=== PATIENT | male | born 1955 | race Caucasian/White ===

== ENCOUNTER → 2017-12-12 | Outpatient (CLI) | payer OTHER ==
[~2017-12-12] MED LIST: ALBIPROI INH; ASPI325 PO; BUDE6HFA INH; CARI350 PO; CEPH500 PO; CYCL10 PO; DIPH50 PO; DULO30 PO; DULO60 PO; FURO80 PO; GABA300 PO; HYDMOR2 PO; Humalog100 UNIT/1 SC; INSUASPI SC; INSULANPEN SC; INSULANPEN SQ; LOSARTAN-HCTZ1 EAC1 PO; METF500 PO; METO25ER PO; METO50ER PO; Norco 5-325 Ta1 EACH PO; OLME40 PO; OMEP20ER PO; Omeprazole20 M1 PO; POTA10T PO; PRAV20 PO; PROM25 PO; Prednisone20 MG PO; SUCR1 PO; TAMS.4ER PO; TRAM50 PO
[2017-12-12 17:00] LABS: BASOPHILS PERCENT AUTO 1 % (0-2); EOSINOPHILS PERCENT AUTO 1 % (0-6); Hematocrit 41.3 % (37.0-53.0); Hemoglobin 14.5 g/dL (13.5-17.5); IMMATURE GRAN ABSOLUTE AUTO 0.06 K/mm3 (0.00-0.10); IMMATURE GRAN PERCENT AUTO 1 % (0-1); LYMPHOCYTES ABSOLUTE AUTO 2.18 K/mm3 (0.84-5.20); LYMPHOCYTES PERCENT AUTO 25 % (21-46); MONOCYTES PERCENT AUTO 9 % (4-13); Mean Corpuscular HGB 30.9 pg (26.0-34.0); Mean Corpuscular HGB Conc 35.1 g/dL (31.5-36.5); Mean Corpuscular Volume 88 fL (80-100); Mean Platelet Volume 9.1 fL (9.1-12.4); NEUTROPHILS ABSOLUTE AUTO 5.62 K/mm3 (1.96-9.15); NEUTROPHILS PERCENT AUTO 64 % (41-73); Platelet Count 324 K/mm3 (150-400); RDW Coefficient Variation 14.1 % (11.7-14.2); Red Blood Cell Count 4.69 M/mm3 (4.30-5.90); White Blood Cell Count 8.86 K/mm3 (4.00-11.30)
[2017-12-12 17:11] LABS: Alanine Aminotransfer (ALT/SGP 43 U/L (12-78); Albumin, Blood 3.6 g/dL (3.4-5.0); Albumin/Globulin Ratio 1.1 (0.8-1.8); Alk Phos 122 U/L (40-126); Anion Gap 9 mmol/L (6-16); Aspartate Aminotrans (AST/SGOT 22 U/L (12-37); Bilirubin, Total 0.3 mg/dL (0.1-1.0); Blood Urea Nitrogen 12 mg/dL (8-24); CO2, Blood 27 mmol/L (21-32); Calcium, Blood 8.7 mg/dL (8.5-10.1); Chloride, Blood 98 mmol/L (98-108); Creatinine, Blood 0.92 mg/dL (0.60-1.20); Globulin, Blood 3.4 g/dL (2.2-4.0); Glomerular Filtration Rate >60 (60-); Glucose, Blood 291 mg/dL (70-99); Potassium, Blood 3.7 mmol/L (3.5-5.5); Sodium, Blood 134 mmol/L (136-145)
== END | disposition home or self-care (01) ==
LOC: LAB EV 16:55 → LAB SHORT 16:55
PROVIDERS: Physician Assistant Surgical
DX: R10.9 Unspecified abdominal pain (principal)
CPT/HCPCS: 80053; 83690; 85025

== ENCOUNTER 2018-01-26 06:41 | Day surgery (SDC) | payer OTHER ==
[~2018-01-26] VITALS: Ht 175.3 cm; Wt 101.6 kg
[~2018-01-26 06:41] MED LIST changes: +AMLO5 PO; +Glucophage1000 MG PO
== END 2018-01-26 08:50 | disposition home or self-care (01) ==
LOC: ORSCMMR 06:41 → ORD 08:00 → ORSCMMR 08:00
PROVIDERS: Internal Medicine Gastroenterology
PROC: 0DBK8ZX Excision of Ascending Colon, Via Natural or Artificial Opening Endoscopic, Diagnostic (ICD-10-PCS; principal; 2018-01-26 08:00)
PROC: 0DBN8ZX Excision of Sigmoid Colon, Via Natural or Artificial Opening Endoscopic, Diagnostic (ICD-10-PCS; principal; 2018-01-26 08:00)
PROC: 0DBB8ZX Excision of Ileum, Via Natural or Artificial Opening Endoscopic, Diagnostic (ICD-10-PCS; principal; 2018-01-26 08:00)
PROC: 0DBL8ZX Excision of Transverse Colon, Via Natural or Artificial Opening Endoscopic, Diagnostic (ICD-10-PCS; principal; 2018-01-26 08:00)
DX: R19.7 Diarrhea, unspecified (principal); K64.8 Other hemorrhoids; E11.9 Type 2 diabetes mellitus without complications; I10 Essential (primary) hypertension; I73.9 Peripheral vascular disease, unspecified; K22.70 Barrett's esophagus without dysplasia; F17.210 Nicotine dependence, cigarettes, uncomplicated; Z79.84 Long term (current) use of oral hypoglycemic drugs; Z79.899 Other long term (current) drug therapy
CPT/HCPCS: 82947; 88305; J7120

== ENCOUNTER → 2018-07-08 | Outpatient (CLI) | payer OTHER | END | disposition home or self-care (01) | LOC: LAB EV 14:23 → LAB SHORT 14:23 | DX: N30.91 Cystitis, unspecified with hematuria (principal) | CPT/HCPCS: 87086 ==

== ENCOUNTER 2018-08-12 00:51 | Emergency (ER) | payer OTHER ==
[~2018-08-12] VITALS: Ht 175.3 cm; Wt 111.1 kg
[2018-08-12] MEDS ORDERED: DULO60 PO (02:38)
[2018-08-12] MEDS ORDERED: AMLO10 PO (02:38)
[2018-08-12] MEDS ORDERED: DICL75ER PO (02:38)
[2018-08-12] MEDS ORDERED: MELO7.5 PO (02:39)
[2018-08-12] MEDS ORDERED: INSULANPEN SC (02:39)
[2018-08-12] MEDS ORDERED: Flector1 EACH TD (02:57)
[2018-08-12] MEDS ORDERED: Norco 10-325 T1 EACH PO (02:57)
== END 2018-08-12 03:15 | disposition home or self-care (01) ==
LOC: ER 00:51
DX: M54.2 Cervicalgia (principal); F17.200 Nicotine dependence, unspecified, uncomplicated; Z88.1 Allergy status to other antibiotic agents; Z88.8 Allergy status to other drugs, medicaments and biological substances; Z79.4 Long term (current) use of insulin; Z79.899 Other long term (current) drug therapy
CPT/HCPCS: 96372; 99283-25; J1885

== ENCOUNTER → 2018-11-14 | Outpatient (CLI) | payer OTHER ==
[~2018-11-14] MED LIST changes: +AMLO10 PO; +DICL75ER PO; +Flector1 EACH TD; +MELO7.5 PO; +Norco 10-325 T1 EACH PO
[2018-11-14 15:05] LABS: Protein, Urine Quantitative 146.2 mg/dL (0.0-11.9)
== END | disposition home or self-care (01) ==
LOC: LAB 10:00 → LAB SHORT 10:00 → LAB FUT 11-13 11:40
PROVIDERS: Internal Medicine
DX: E11.65 Type 2 diabetes mellitus with hyperglycemia (principal); R80.9 Proteinuria, unspecified
CPT/HCPCS: 81050; 82570; 84156; 84300

== ENCOUNTER → 2019-07-13 | Outpatient (CLI) | payer OTHER ==
[2019-07-13 17:32] LABS: Protein, Urine Random 52.1 mg/dL (0.0-11.9)
== END | disposition home or self-care (01) ==
LOC: LAB SHORT 13:18 → OLS 13:18
PROVIDERS: Internal Medicine
DX: N18.1 Chronic kidney disease, stage 1 (principal)
CPT/HCPCS: 82570; 84156

== ENCOUNTER 2021-01-16 10:37 | Day surgery (SDC) | payer OTHER ==
[~2021-01-16] VITALS: Ht 175.3 cm; Wt 102.0 kg
[~2021-01-16 10:37] MED LIST changes: +CILO100 PO; +K-Dur10 MEQ PO; +LOSA50 PO; +ROSU10TA PO
[2021-01-16] MEDS ORDERED: FURO20 PO (11:02)
[2021-01-16 12:00] LABS: SARS-Cov-2 (COVID-19) PCR, MMC NEGATIVE (NEGATIVE)
--- NOTE | 2021-01-16 17:32 | NUR ---
PT UP AND DRESSED PER SELF. GROIN SITE STABLE. DISCHARGE INSTRUCTIONS REVIEWED WITH PT, VERBALIZES UNDERSTANDING OF INSTRUCTIONS. SALINE LOCK REMOVED WITH CATHETER INTACT. PT TO PRIVATE VEHICLE WITH ASSIST OF ONE STAFF.
== END 2021-01-16 23:00 | disposition home or self-care (01) ==
LOC: MHTC 10:37
PROVIDERS: Radiology Diagnostic Radiology
DX: E11.51 Type 2 diabetes mellitus with diabetic peripheral angiopathy without gangrene (principal); I70.213 Atherosclerosis of native arteries of extremities with intermittent claudication, bilateral legs; I10 Essential (primary) hypertension; E78.5 Hyperlipidemia, unspecified; J44.9 Chronic obstructive pulmonary disease, unspecified; G47.33 Obstructive sleep apnea (adult) (pediatric); F17.210 Nicotine dependence, cigarettes, uncomplicated; Z88.5 Allergy status to narcotic agent; Z88.0 Allergy status to penicillin; Z88.8 Allergy status to other drugs, medicaments and biological substances; Z20.822 Contact with and (suspected) exposure to COVID-19
CPT/HCPCS: 37221; 37224; 37228; 75625; 75716; 75774; 76937; 85347; 99152; 99153; C1725; C1760; C1769; C1876; C1887; C1894; C2623; J2250; J3010; J7030; J7050; Q9967; U0004

== ENCOUNTER 2021-04-30 09:55 | Day surgery (SDC) | payer OTHER ==
[~2021-04-30] VITALS: Ht 172.7 cm; Wt 103.0 kg
[~2021-04-30 09:55] MED LIST changes: +Aspir 8181 MG PO; +CLOP75 PO; +FURO20 PO
[2021-04-30] MEDS ORDERED: Percocet 5-3251 EACH PO (10:32)
[2021-04-30] MEDS ORDERED: GABA300 PO (10:32)
--- NOTE | 2021-04-30 16:10 | NUR ---
PATIENT AWAKE AND ALERTY. RIGHT GROIN SITE SOFT AND NONTENDER. NO BLEEDING NO HEMATOMA. DRESSING D&I. DRESSING TO LEFT FOOT D&I. NO BLEEDING. NO HEMATOMA.
--- NOTE | 2021-04-30 16:53 | NUR ---
PATIENT SITTING IN BED. EATING DINNER AND VISITING. RIGHT GROIN SITE UNCHANGED.
--- NOTE | 2021-04-30 17:55 | NUR ---
PATIENT VERBALIZED UNDERSTANDING OF DISCHARGE INSTRUCTIONS AND PRECAUTIONS. PATIENT UP TO RESTROOM. DRESSED BY SELF. RIGHT GROIN SITE REMAINS SOFT AND NONTENDER. NO HEMATOMA, NO BLEEDING. DRESSING D&I. IV SITE DCED WITH CATHETER IN TACT. TAKEN VIA WHEEL CHAIR TO CAR WITH FAMILY DRIVING
== END 2021-04-30 17:50 | disposition home or self-care (01) ==
LOC: MHTC 09:55
DX: E11.51 Type 2 diabetes mellitus with diabetic peripheral angiopathy without gangrene (principal); I70.223 Atherosclerosis of native arteries of extremities with rest pain, bilateral legs; J44.9 Chronic obstructive pulmonary disease, unspecified; E78.5 Hyperlipidemia, unspecified; I10 Essential (primary) hypertension; F17.210 Nicotine dependence, cigarettes, uncomplicated; Z88.0 Allergy status to penicillin; Z88.5 Allergy status to narcotic agent; Z88.8 Allergy status to other drugs, medicaments and biological substances; Z79.02 Long term (current) use of antithrombotics/antiplatelets
CPT/HCPCS: 76937; 99152; 99153; C1714; C1725; C1760; C1769; C1874; C1876; C1887; C1894; C2623; J1644; J2250; J3010; J7030; J7050; Q9967

== ENCOUNTER 2021-05-07 10:05 | Day surgery (SDC) | payer OTHER ==
[~2021-05-07] VITALS: Ht 175.3 cm; Wt 104.3 kg
[~2021-05-07 10:05] MED LIST changes: +Percocet 5-3251 EACH PO
[2021-05-07] MEDS ORDERED: METF500 PO (10:37)
--- NOTE | 2021-05-07 11:24 | NUR ---
05/07/21 1124 Musa Gallardo ISOVUE 200 MG USED FOR PROCEDURE.
== END 2021-05-07 11:59 | disposition home or self-care (01) ==
LOC: ORSCSDS 10:05
PROVIDERS: Anesthesiology
PROC: 3E0R33Z Introduction of Anti-inflammatory into Spinal Canal, Percutaneous Approach (ICD-10-PCS; principal; 2021-05-07 11:15)
DX: M50.122 Cervical disc disorder at C5-C6 level with radiculopathy (principal); E11.9 Type 2 diabetes mellitus without complications; K21.9 Gastro-esophageal reflux disease without esophagitis; I10 Essential (primary) hypertension; E78.00 Pure hypercholesterolemia, unspecified; F17.210 Nicotine dependence, cigarettes, uncomplicated; Z79.82 Long term (current) use of aspirin; Z79.84 Long term (current) use of oral hypoglycemic drugs; Z79.899 Other long term (current) drug therapy
CPT/HCPCS: 82947; J1040; J2250; J3010; J7040

== ENCOUNTER → 2021-07-04 | Outpatient (CLI) | payer OTHER | END | disposition home or self-care (01) | LOC: LAB SHORT 16:25 | PROVIDERS: Family Medicine | DX: Z51.81 Encounter for therapeutic drug level monitoring (principal); Z79.899 Other long term (current) drug therapy | CPT/HCPCS: G0480 ==

== ENCOUNTER 2021-07-17 06:19 | Day surgery (SDC) | payer OTHER ==
[~2021-07-17] VITALS: Ht 172.7 cm; Wt 102.0 kg
--- NOTE | 2021-07-17 10:05 | NUR ---
PT TO RECOVYER ROOM POST PROCEDURE. PT DROWSY, BUT EASILY ROUSABLE, CONVERSING APPROPRIATELY; DENIES PAIN POST PROCEDURE. MONITOR SR 80'S, B/P 104/71, AFEBRILE, SPO2 96% RA. R GROIN NO SWELLING/HEMATOMA, TEGADERM DRSG INTACT; ANGIO SEAL DEPLOYED, PULSES RLE DOP X 2, LLE PT DOP, DP ABS. PT'S AT BEDSIDE, ATTENTIVE.
[2021-07-17] MEDS ORDERED: XARELTO PO (10:44)
--- NOTE | 2021-07-17 11:07 | NUR ---
PT'S HOB ELEVATED, SITE REMAINS UNCHANGED.
--- NOTE | 2021-07-17 12:16 | NUR ---
PT AMB TO BATHROOM, GAIT STEADY; SITE UNCHANGED WITH ACTIVITY.
--- NOTE | 2021-07-17 12:50 | NUR ---
PT DRESSED SELF WITHOUT ISSUE, SITE UNCHANGED; IV REMOVED-CANNULA INTACT.
--- NOTE | 2021-07-17 13:00 | NUR ---
PT AND RECEIVED DISCHARGE INSTRUCTIONS, MED LIST AND AFTER CARE INSTRUCTIONS; VERBALIZED GOOD UNDERSTANDING. PT LEFT FACILITY VIA W/C, CONDITION STABLE.
== END 2021-07-17 13:00 | disposition home or self-care (01) ==
LOC: MHTC 06:19
DX: E11.51 Type 2 diabetes mellitus with diabetic peripheral angiopathy without gangrene (principal); E11.69 Type 2 diabetes mellitus with other specified complication; I70.213 Atherosclerosis of native arteries of extremities with intermittent claudication, bilateral legs; J44.9 Chronic obstructive pulmonary disease, unspecified; E78.5 Hyperlipidemia, unspecified; I10 Essential (primary) hypertension; F17.210 Nicotine dependence, cigarettes, uncomplicated; Z88.1 Allergy status to other antibiotic agents; Z88.5 Allergy status to narcotic agent
CPT/HCPCS: 76937; 85347; 99152; 99153; C1714; C1725; C1760; C1769; C1874; C1887; C1894; C2623; J1644; J2250; J3010; J7030; J7050; Q9967

== ENCOUNTER 2021-10-23 12:39 | Emergency (ER) | payer OTHER ==
[~2021-10-23] VITALS: Ht 172.7 cm; Wt 95.2 kg
[~2021-10-23 12:39] MED LIST changes: +XARELTO PO
[2021-10-23] MEDS ORDERED: LIDO700A20 TOP (16:45)
== END 2021-10-23 18:08 | disposition home or self-care (01) ==
LOC: ER 12:39
DX: M54.2 Cervicalgia (principal); G89.29 Other chronic pain; R51.9 Headache, unspecified; E11.9 Type 2 diabetes mellitus without complications; I10 Essential (primary) hypertension; F17.210 Nicotine dependence, cigarettes, uncomplicated; Z88.1 Allergy status to other antibiotic agents; Z88.8 Allergy status to other drugs, medicaments and biological substances; Z79.899 Other long term (current) drug therapy; Z79.82 Long term (current) use of aspirin; Z79.84 Long term (current) use of oral hypoglycemic drugs; Z79.01 Long term (current) use of anticoagulants; Z98.1 Arthrodesis status
CPT/HCPCS: 36415; 70450; 72125; A9270; J1100; J1200; J1885; J2765; J3475

== ENCOUNTER 2021-11-27 06:07 | Day surgery (SDC) | payer OTHER ==
[~2021-11-27] VITALS: Ht 172.7 cm; Wt 98.0 kg
[~2021-11-27 06:07] MED LIST changes: +LIDO700A20 TOP
[2021-11-27] MEDS ORDERED: METF500C PO (06:35)
[2021-11-27 06:54] LABS: BASOPHILS PERCENT AUTO 1 % (0-2); EOSINOPHILS PERCENT AUTO 2 % (0-6); Hematocrit 46.9 % (37.0-53.0); Hemoglobin 15.4 g/dL (13.5-17.5); IMMATURE GRAN ABSOLUTE AUTO 0.07 K/mm3 (0.00-0.10); IMMATURE GRAN PERCENT AUTO 1 % (0-1); LYMPHOCYTES ABSOLUTE AUTO 2.78 K/mm3 (0.84-5.20); LYMPHOCYTES PERCENT AUTO 25 % (21-46); MONOCYTES PERCENT AUTO 9 % (4-13); Mean Corpuscular HGB 28.8 pg (26.0-34.0); Mean Corpuscular HGB Conc 32.8 g/dL (31.5-36.5); Mean Corpuscular Volume 88 fL (80-100); Mean Platelet Volume 8.9 fL (9.1-12.4); NEUTROPHILS ABSOLUTE AUTO 7.17 K/mm3 (1.96-9.15); NEUTROPHILS PERCENT AUTO 63 % (41-73); Platelet Count 362 K/mm3 (150-400); RDW Coefficient Variation 14.4 % (11.7-14.2); RDW Standard Deviation 45.7 fL (35.1-46.3); Red Blood Cell Count 5.34 M/mm3 (4.30-5.90); White Blood Cell Count 11.32 K/mm3 (4.00-11.30)
[2021-11-27 07:12] LABS: Bun/Creatinine Ratio 30.9 (12.0-20.0); Calcium, Blood 9.6 mg/dL (8.5-10.1); Creatinine, Blood 0.62 mg/dL (0.60-1.20); Potassium, Blood 3.7 mmol/L (3.5-5.5)
[2021-11-27 07:18] LABS: International Normalized Ratio 1.03; Prothrombin Time Results 10.8 Sec (9.7-11.5)
--- NOTE | 2021-11-27 11:25 | NUR ---
pt verbalizes understanding written and verbal orders. pt IV dc'd. cath intact. pressure dsg applied. Pt dresses self without diff. R femoral sheath remains stable. VSS. NADN. pt will be dc'd to home via wc.
== END 2021-11-27 11:35 | disposition home or self-care (01) ==
LOC: MHTC 06:07
PROVIDERS: Radiology Diagnostic Radiology
DX: E11.51 Type 2 diabetes mellitus with diabetic peripheral angiopathy without gangrene (principal); I70.223 Atherosclerosis of native arteries of extremities with rest pain, bilateral legs; E11.69 Type 2 diabetes mellitus with other specified complication; E78.5 Hyperlipidemia, unspecified; F17.210 Nicotine dependence, cigarettes, uncomplicated; J44.9 Chronic obstructive pulmonary disease, unspecified; I10 Essential (primary) hypertension; G47.33 Obstructive sleep apnea (adult) (pediatric); Z72.0 Tobacco use; Z95.828 Presence of other vascular implants and grafts; Z88.8 Allergy status to other drugs, medicaments and biological substances; Z88.5 Allergy status to narcotic agent; Z88.1 Allergy status to other antibiotic agents
CPT/HCPCS: 76937; 80048; 85025; 85610; 99152; 99153; C1714; C1725; C1760; C1769; C1874; C1887; C1894; J1644; J2250; J3010; J7030; J7040; Q9967

== ENCOUNTER 2022-03-06 05:40 | Day surgery (SDC) | payer OTHER ==
[~2022-03-06] VITALS: Wt 95.0 kg
[~2022-03-06 05:40] MED LIST changes: +METF500C PO
[2022-03-06] MEDS ORDERED: OZEMPIC0.25 MG/0. SQ (06:27)
[2022-03-06] MEDS ORDERED: VENL37.5ER PO (06:27)
[2022-03-06] MEDS ORDERED: XARELTO20 MG PO (11:13)
[2022-03-06] MEDS ORDERED: BUPR150ER PO (11:16)
--- NOTE | 2022-03-06 11:17 | NUR ---
PT SAT UP IN BED. MD AT BEDSIDE TALKING WITH PT AND . WILL CONTINUE TO MONITOR
--- NOTE | 2022-03-06 11:49 | NUR ---
DISCHARGE PT DRESSED SELF AND AMBULATED TO RESTROOM WITHOUT ANY COMPLICATIONS. PT R FEMORAL ACCESS WITH NO BLEEDING, OOZING OR HEMATOMA NOTED. PT AND BOTH STATE THEIR UNDERSTANDING OF DC AND SITE CARE INSTRUCTIONS AND BOTH DENIES ANY QUESTIONS OR CONCERNS UPON DC. IV DCD WITH CATH INTACT. VSS. PTS RIDE IS WITH [facility]. PT STATES THEY ARE NOT HERE YET BUT INSISTS ON WAITING IN THE LOBBY BY THE FRONT DOOR. PT IS EXTREMELY EAGER TO LEAVE HE HAS BEEN THROUGH THROUGH THE PROCEDURE 7 TIMES PER PT. BOTH PATIENT AND SITE ARE STABLE AND PT IS UP FOR DISCHARGE.
== END 2022-03-06 14:28 | disposition home or self-care (01) ==
LOC: MHTC 05:40
DX: E11.51 Type 2 diabetes mellitus with diabetic peripheral angiopathy without gangrene (principal); I70.213 Atherosclerosis of native arteries of extremities with intermittent claudication, bilateral legs; I10 Essential (primary) hypertension; E78.5 Hyperlipidemia, unspecified; J44.9 Chronic obstructive pulmonary disease, unspecified; G47.33 Obstructive sleep apnea (adult) (pediatric); Z88.5 Allergy status to narcotic agent; Z88.8 Allergy status to other drugs, medicaments and biological substances; Z79.02 Long term (current) use of antithrombotics/antiplatelets
CPT/HCPCS: 37227; 75716; 75774; 76937; 85347; 99152; 99153; C1714; C1725; C1760; C1769; C1874; C1887; C1894; C2623; J1644; J2250; J3010; J7030; J7040; Q9967

== ENCOUNTER → 2022-07-31 | Outpatient (CLI) | payer OTHER ==
[~2022-07-31] MED LIST changes: +BUPR150ER PO; +OZEMPIC0.25 MG/0. SQ; +VENL37.5ER PO; +XARELTO20 MG PO
== END | disposition home or self-care (01) ==
LOC: LAB 10:02 → LAB SHORT 10:02
DX: L92.8 Other granulomatous disorders of the skin and subcutaneous tissue (principal); L98.9 Disorder of the skin and subcutaneous tissue, unspecified
CPT/HCPCS: 88305; 88313

== ENCOUNTER → 2022-12-06 | Outpatient (CLI) | payer OTHER ==
[2022-12-09 03:09] LABS: HEMOGLOBIN A1C 7.1 % (4.8-5.6)
== END | disposition home or self-care (01) ==
LOC: LAB SHORT 16:25 → LAB 16:25
PROVIDERS: Family Medicine
DX: E11.42 Type 2 diabetes mellitus with diabetic polyneuropathy (principal); E11.69 Type 2 diabetes mellitus with other specified complication; E11.29 Type 2 diabetes mellitus with other diabetic kidney complication; E11.3293 Type 2 diabetes mellitus with mild nonproliferative diabetic retinopathy without macular edema, bilateral; E11.36 Type 2 diabetes mellitus with diabetic cataract
CPT/HCPCS: 83036

== ENCOUNTER → 2024-05-17 | Outpatient (CLI) | payer OTHER ==
[~2024-05-17] MED LIST changes: +ALDACTONE25 MG PO; +ATORVASTATIN CA80 M1 PO; +Crestor40 MG PO; +FLUTICASONE PRO16 GM; +LOSARTAN POTAS100 M1 PO; -OZEMPIC0.25 MG/0. SQ; +OZEMPIC1 MG/0.72 SC; -ROSU10TA PO; +XARELTO10 M1 PO
[2024-05-18 12:15] LABS: Stool Occult Bld Immuno 1 Positive (NEGATIVE)
== END ==
LOC: LAB 18:30 → LAB SHORT 18:30
PROVIDERS: Family Medicine
DX: D50.0 Iron deficiency anemia secondary to blood loss (chronic) (principal)
CPT/HCPCS: 82274

== ENCOUNTER 2024-06-24 06:38 | Day surgery (SDC) | payer OTHER ==
[~2024-06-24] VITALS: Ht 177.8 cm; Wt 98.7 kg
[2024-06-24] MEDS ORDERED: Lactated Ringer's 1,000 ML IV ONE ×2 (07:23→08:09)
[2024-06-24] MEDS ORDERED: propofoL 50 ML IV ONE ×2 (08:15→08:53)
[2024-06-24] MEDS ORDERED: Labetalol HCL 5 MG/ML 4ML Injection (Single Dose) ONE (08:39)
[2024-06-24] MEDS ORDERED: Ipratropium/Albuterol SulF 2.5-0.5MG/3 ML Amp ONE (09:12)
[2024-06-24 09:34] VITALS: BP 106/71
== END 2024-06-24 09:49 | disposition home or self-care (01) ==
LOC: ORSCSDS 06:38
PROVIDERS: Internal Medicine Gastroenterology
PROC: 0DB58ZX Excision of Esophagus, Via Natural or Artificial Opening Endoscopic, Diagnostic (ICD-10-PCS; principal; 2024-06-24 08:45)
PROC: 0DB78ZX Excision of Stomach, Pylorus, Via Natural or Artificial Opening Endoscopic, Diagnostic (ICD-10-PCS; principal; 2024-06-24 08:45)
PROC: 0DBL8ZX Excision of Transverse Colon, Via Natural or Artificial Opening Endoscopic, Diagnostic (ICD-10-PCS; principal; 2024-06-24 08:45)
PROC: 0DB98ZX Excision of Duodenum, Via Natural or Artificial Opening Endoscopic, Diagnostic (ICD-10-PCS; principal; 2024-06-24 08:45)
DX: D50.9 Iron deficiency anemia, unspecified (principal); K22.70 Barrett's esophagus without dysplasia; K21.9 Gastro-esophageal reflux disease without esophagitis; D12.3 Benign neoplasm of transverse colon; K44.9 Diaphragmatic hernia without obstruction or gangrene; I10 Essential (primary) hypertension; G47.33 Obstructive sleep apnea (adult) (pediatric); E11.42 Type 2 diabetes mellitus with diabetic polyneuropathy; F17.210 Nicotine dependence, cigarettes, uncomplicated; Z79.899 Other long term (current) drug therapy; E78.5 Hyperlipidemia, unspecified; J44.9 Chronic obstructive pulmonary disease, unspecified; I73.9 Peripheral vascular disease, unspecified; Z79.01 Long term (current) use of anticoagulants; Z79.82 Long term (current) use of aspirin
CPT/HCPCS: 82947; 88305; 88342; J2704; J7120

== ENCOUNTER 2025-02-21 07:12 | Day surgery (SDC) | payer OTHER ==
[~2025-02-21] VITALS: Ht 172.7 cm; Wt 89.3 kg
[2025-02-21] MEDS ORDERED: CeFAZolin Sodium 2,000 MG VIAL ONE (08:55)
--- NOTE | 2025-02-21 09:01 | NUR ---
02/21/25 0901 Judith Puckett INJECTION IN LEFT HAND BY MD VILLAR IN PREOP WITH LIDO 1% W/EPI 1:100,000 W/1 CC BICARB. TIME OUT DONE PRIOR TO INJECTION
[2025-02-21] MEDS ORDERED: HYDROcodone 5-APAP 325 TAB ONE (10:08)
[2025-02-21 10:17] VITALS: BP 147/86
== END 2025-02-21 10:32 | disposition home or self-care (01) ==
LOC: ORSCSDS 07:12
PROVIDERS: Orthopaedic Surgery
PROC: 0LN80ZZ Release Left Hand Tendon, Open Approach (ICD-10-PCS; principal; 2025-02-21 09:30)
DX: M65.332 Trigger finger, left middle finger (principal); M65.342 Trigger finger, left ring finger; M65.312 Trigger thumb, left thumb; J44.9 Chronic obstructive pulmonary disease, unspecified; I10 Essential (primary) hypertension; E78.5 Hyperlipidemia, unspecified; G47.33 Obstructive sleep apnea (adult) (pediatric); E11.9 Type 2 diabetes mellitus without complications; K21.9 Gastro-esophageal reflux disease without esophagitis; Z79.82 Long term (current) use of aspirin; Z79.84 Long term (current) use of oral hypoglycemic drugs; Z79.01 Long term (current) use of anticoagulants; Z79.85 Long-term (current) use of injectable non-insulin antidiabetic drugs; Z79.02 Long term (current) use of antithrombotics/antiplatelets; Z79.899 Other long term (current) drug therapy; F17.210 Nicotine dependence, cigarettes, uncomplicated
CPT/HCPCS: 82947; A9270; J0690; J2704; J7120